=== PATIENT | male | born 1990 | race Caucasian/White ===

== ENCOUNTER 2020-04-12 16:16 | Outpatient (REF) | payer OTHER, SELFPAY ==
[2020-04-12 18:02] LABS: MANUAL DIFF FLAG NO
[2020-04-12 18:08] LABS: Basophils Percent Auto 0.4 % (0-2); Eosinophils Absolute Auto 0.1 X10*3/uL (0.0-0.4); Eosinophils Percent Auto 1.1 % (0-4); Hematocrit 45.7 % (42-52); Hemoglobin 15.8 g/dl (14.0-18.0); Imm Gran Abs Auto 0.03 X10*3/uL (0.00-0.03); Imm Gran Pct Auto 0.3 % (0.0-0.4); Lymphocytes Absolute Auto 3.3 X10*3/uL (1.2-4.9); Lymphocytes Percent Auto 31.8 % (20-40); Mean Corpuscular HGB Conc 34.6 g/dl (31.0-36.0); Mean Corpuscular Hemoglobin 32.1 pg (27.0-33.0); Mean Corpuscular Volume 92.9 fL (80-98); Mean Platelet Volume 11.8 fL (9.4-12.4); Monocytes Absolute Auto 0.8 X10*3/uL (0.1-1.2); Monocytes Percent Auto 7.9 % (2-11); Neutrophils Absolute Auto 6.1 X10*3/uL (2.0-8.3); Neutrophils Percent Auto 58.5 % (45-73); Platelet Count 209 X10*3/uL (160-400); Red Blood Count 4.92 X10*6/uL (4.60-5.80); Red Cell Distribution Width 11.8 % (11.0-16.0); White Blood Count 10.5 X10*3/uL (4.8-10.8)
[2020-04-12 18:16] LABS: Glucose Urine UA NEG (NEG); Leukocyte Esterase Urine NEG (NEG); Nitrite Urine NEG (NEG); Specific Gravity - Urine >= 1.030 (1.005-1.025); Urine Blood NEG (NEG); Urine Ketones NEG (NEG); Urine Protein NEG (NEG-TRACE)
[2020-04-12 18:22] LABS: Appearance Urine CLEAR; Color Urine YELLOW
[2020-04-12 18:27] LABS: Anion Gap 15 (12-20); Blood Urea Nitrogen 15 mg/dL (9-16); Calcium 9.1 mg/dL (8.4-10.2); Carbon Dioxide 25 mmol/L (22-29); Chloride 103 mmol/L (96-108); Estimated Glomerular Filt Rate > 60; Glucose Random 75 mg/dL (60-115); Potassium 3.9 mmol/l (3.3-5.1); Sodium 139 mmol/L (135-145)
[2020-04-12 18:49] LABS: Syphilis Screen Nonreactive (Nonreactive)
[2020-04-13 01:45] LABS: CT PCR NOT DETECTED (Not Detect.); NG PCR NOT DETECTED (Not Detect.)
[2020-04-15 11:13] LABS: HIV Num 1 1.09 S/CO (0.00-0.99)
[2020-04-15 12:03] LABS: HIV Num 2 1.14 S/CO
[2020-04-15 12:04] LABS: HIV Num 3 1.05 S/CO
[2020-04-15 12:06] LABS: HIV AB/AG Reactive (Nonreactive)
[2020-04-16 13:31] LABS: HIV 1 Antibody NEGATIVE (NEGATIVE); HIV 2 Antibody NEGATIVE (NEGATIVE)
[2020-04-19 05:16] LABS: HIV-1 RNA TMA Qualitative Not Detected (Not Detected)
== END 2020-04-12 16:17 | disposition home or self-care (01) ==
LOC: HO.LAB 16:16
PROVIDERS: PCP Internal Medicine; Visit Provider Internal Medicine
DX: Z11.4 Encounter for screening for human immunodeficiency virus [HIV] (principal); Z11.3 Encounter for screening for infections with a predominantly sexual mode of transmission; Z11.8 Encounter for screening for other infectious and parasitic diseases
CPT/HCPCS: 36415; 80048; 81003; 85025; 86701; 86702; 86780; 87389; 87491; 87591

== ENCOUNTER 2020-05-29 07:51 | Outpatient (REF) | payer OTHER, SELFPAY | END 2020-05-29 07:52 | disposition home or self-care (01) | LOC: HO.LAB 07:51 | PROVIDERS: Visit Provider Internal Medicine | DX: Z20.828 Contact with and (suspected) exposure to other viral communicable diseases (principal) | CPT/HCPCS: C9803; U0003 ==

== ENCOUNTER 2020-06-18 07:54 | Outpatient (REF) | payer OTHER, SELFPAY | END 2020-06-18 07:55 | disposition home or self-care (01) | LOC: HO.LAB 07:54 | PROVIDERS: Visit Provider Internal Medicine | DX: Z20.822 Contact with and (suspected) exposure to COVID-19 (principal) | CPT/HCPCS: 36415; C9803; U0003 ==

== ENCOUNTER 2020-06-28 14:31 | Outpatient (REF) | payer OTHER, SELFPAY ==
[2020-06-28 15:23] LABS: MANUAL DIFF FLAG NO
[2020-06-28 15:38] LABS: Basophils Percent Auto 0.3 % (0-2); Eosinophils Absolute Auto 0.1 X10*3/uL (0.0-0.4); Eosinophils Percent Auto 1.5 % (0-4); Hemoglobin 15.8 g/dl (14.0-18.0); Imm Gran Abs Auto 0.04 X10*3/uL (0.00-0.03); Imm Gran Pct Auto 0.5 % (0.0-0.4); Lymphocytes Absolute Auto 2.8 X10*3/uL (1.2-4.9); Lymphocytes Percent Auto 31.9 % (20-40); Mean Corpuscular HGB Conc 33.6 g/dl (31.0-36.0); Mean Corpuscular Hemoglobin 31.4 pg (27.0-33.0); Mean Corpuscular Volume 93.4 fL (80-98); Mean Platelet Volume 11.1 fL (9.4-12.4); Monocytes Absolute Auto 0.6 X10*3/uL (0.1-1.2); Monocytes Percent Auto 6.5 % (2-11); Neutrophils Absolute Auto 5.1 X10*3/uL (2.0-8.3); Neutrophils Percent Auto 59.3 % (45-73); Platelet Count 195 X10*3/uL (160-400); Red Blood Count 5.03 X10*6/uL (4.60-5.80); Red Cell Distribution Width 12.1 % (11.0-16.0); White Blood Count 8.6 X10*3/uL (4.8-10.8)
[2020-06-28 15:39] LABS: Glucose Urine UA NEG (NEG); Leukocyte Esterase Urine NEG (NEG); Nitrite Urine NEG (NEG); PH 6.5 (5.0-8.0); Urine Blood NEG (NEG); Urine Ketones NEG (NEG); Urine Protein NEG (NEG-TRACE)
[2020-06-28 15:44] LABS: Appearance Urine CLEAR; Color Urine YELLOW
[2020-06-28 15:53] LABS: Anion Gap 14 (12-20); Blood Urea Nitrogen 16 mg/dL (9-16); Calcium 9.3 mg/dL (8.4-10.2); Carbon Dioxide 27 mmol/L (22-29); Chloride 104 mmol/L (96-108); Cholesterol 148 mg/dL; Estimated Glomerular Filt Rate > 60; Glucose Random 89 mg/dL (60-115); Potassium 3.9 mmol/L (3.3-5.1); Sodium 141 mmol/L (135-145)
[2020-07-01 08:11] LABS: HIV AB/AG Nonreactive (Nonreactive); HIV Num 1 0.75 S/CO (0.00-0.99)
[2020-07-01 15:42] LABS: C. trachomatis RNA TMA NOT DETECTED (NOT DETECTED); N. gonorrhoeae RNA TMA NOT DETECTED (NOT DETECTED)
== END 2020-06-28 14:32 | disposition home or self-care (01) ==
LOC: HO.LAB 14:31
PROVIDERS: PCP Internal Medicine; Visit Provider Internal Medicine
DX: Z83.3 Family history of diabetes mellitus (principal); Z11.3 Encounter for screening for infections with a predominantly sexual mode of transmission
CPT/HCPCS: 36415; 80048; 81003; 82465; 85025; 87389; 87491; 87591

== ENCOUNTER 2020-07-27 13:32 | Emergency (ER) | payer OTHER, SELFPAY ==
[2020-07-27 13:35] VITALS: BP 138/81; PULSE 87; RESP 18; TEMP 36.8; O2SAT 98; BMI 22.4
--- NOTE | 2020-07-27 15:44 | ED.WOUNDLAC ---
HPI - Wound/Laceration General Chief Complaint: Wound/Laceration Stated Complaint: finger laceration Time Seen by Provider: 07/27/20 15:44 History of Present Illness HPI narrative: Patient complains of left 3rd finger laceration accidentally while cutting something with a knife, no numbness no weakness no tingling, he is not up-to-date on his tetanus shot Related Data Allergies Allergy/AdvReac Type Severity Reaction Status Date / Time No Known Allergies Allergy Verified 07/27/20 13:34 Review of Systems Review of Systems: Positive for left 3rd finger laceration Negative is no dizziness no weakness no numbness no tingling no paresthesias no joint pain PMFSH Past Medical History Source: nursing notes reviewed Medical History (Updated 07/27/20 @ 15:44 by LAKHWINDER Noland) No pertinent past medical history Social History Social History Advance Directives: No Advance Directives Information Provided: No Physical Exam Vital Signs: Vital Signs: Last Vital Signs Temp 98.3 F 07/27/20 13:35 Pulse 87 07/27/20 13:35 Resp 18 07/27/20 13:35 BP 138/81 07/27/20 13:35 Pulse Ox 98 07/27/20 13:35 Body Mass Index 22.4 General appearance no disc cute distress comfortable relaxed and cooperative Head is normocephalic atraumatic Neck is supple Respiratory no distress Extremities the left 3rd finger mid phalanx dorsal aspect has a 1.5 cm superficial laceration, there is no deficit in tendon function on either flexion or extension, there is full range of motion in all joints there is no numbness or weakness distally and neurovascular intact distal Neuro no focal deficits Course Course Course Narrative: 1.5 cm left 3rd finger laceration is cleansed and irrigated with normal saline, no foreign body seen, closed with Steri-Strips and dressing applied Discharge Plan Discharge Clinical Impression: Laceration Patient Disposition: Home, Self-Care Additional Instructions: Removed tape in 5-6 days You got a tetanus injection Return any time for redness swelling discharge from wound any sign of infection or any concerns Interventions: ED Discharge Assessment Last Done: 07/27/20 16:04 Discharge Date/Time: 07/27/20 15:50
== END 2020-07-27 15:50 | disposition home or self-care (01) ==
PROVIDERS: Emergency Provider Emergency Medicine Emergency Medical Services; PCP Internal Medicine
DX: S61.213A Laceration without foreign body of left middle finger without damage to nail, initial encounter (principal); W26.0XXA Contact with knife, initial encounter; Y93.9 Activity, unspecified; Y92.019 Unspecified place in single-family (private) house as the place of occurrence of the external cause; Y99.9 Unspecified external cause status
CPT/HCPCS: 90471; 90715; 99283; 99284

== ENCOUNTER 2021-01-10 15:30 | Outpatient (REF) | payer OTHER, SELFPAY ==
[2021-01-10 16:24] LABS: MANUAL DIFF FLAG NO
[2021-01-10 16:25] LABS: Basophils Percent Auto 0.3 % (0-2); Eosinophils Absolute Auto 0.3 X10*3/uL (0.0-0.4); Eosinophils Percent Auto 2.8 % (0-4); Hematocrit 44.7 % (42-52); Hemoglobin 15.1 g/dl (14.0-18.0); Imm Gran Abs Auto 0.03 X10*3/uL (0.00-0.03); Imm Gran Pct Auto 0.3 % (0.0-0.4); Lymphocytes Absolute Auto 2.9 X10*3/uL (1.2-4.9); Lymphocytes Percent Auto 32.7 % (20-40); Mean Corpuscular HGB Conc 33.8 g/dl (31.0-36.0); Mean Corpuscular Hemoglobin 31.5 pg (27.0-33.0); Mean Corpuscular Volume 93.3 fL (80-98); Monocytes Absolute Auto 0.8 X10*3/uL (0.1-1.2); Monocytes Percent Auto 8.6 % (2-11); Neutrophils Absolute Auto 4.9 X10*3/uL (2.0-8.3); Neutrophils Percent Auto 55.3 % (45-73); Platelet Count 215 X10*3/uL (160-400); Red Blood Count 4.79 X10*6/uL (4.60-5.80); Red Cell Distribution Width 12.2 % (11.0-16.0)
[2021-01-10 16:39] LABS: Estimated Average Glucose 94 mg/dL; Hemoglobin A1c % 4.9 %
[2021-01-10 16:46] LABS: Anion Gap 13 (12-20); Blood Urea Nitrogen 15 mg/dL (9-16); Calcium 9.3 mg/dL (8.4-10.2); Carbon Dioxide 25 mmol/L (22-29); Chloride 106 mmol/L (96-108); Estimated Glomerular Filt Rate > 60; Glucose Random 87 mg/dL (60-115); Sodium 140 mmol/L (135-145)
[2021-01-11 08:38] LABS: Syphilis Screen Nonreactive (Nonreactive)
[2021-01-11 13:11] LABS: CT PCR NOT DETECTED (Not Detect.); NG PCR NOT DETECTED (Not Detect.)
== END 2021-01-10 15:31 | disposition home or self-care (01) ==
LOC: HO.LAB 15:30
PROVIDERS: PCP Internal Medicine; Visit Provider Internal Medicine
DX: L98.9 Disorder of the skin and subcutaneous tissue, unspecified (principal); Z11.3 Encounter for screening for infections with a predominantly sexual mode of transmission; Z11.4 Encounter for screening for human immunodeficiency virus [HIV]; Z11.8 Encounter for screening for other infectious and parasitic diseases
CPT/HCPCS: 80048; 83036; 85025; 86780; 87491; 87591

== ENCOUNTER 2023-03-02 16:26 | Outpatient (REF) | payer OTHER, SELFPAY ==
[2023-03-02 16:37] LABS: MANUAL DIFF FLAG NO
[2023-03-02 17:30] LABS: Basophils Percent Auto 0.4 % (0-2); Eosinophils Absolute Auto 0.2 X10*3/uL (0.0-0.4); Eosinophils Percent Auto 2.2 % (0-4); Hematocrit 44.8 % (42.0-52.0); Hemoglobin 15.3 g/dl (14.0-18.0); Imm Gran Abs Auto 0.07 X10*3/uL (0.00-0.03); Imm Gran Pct Auto 0.7 % (0.0-0.4); Lymphocytes Percent Auto 28.5 % (20-40); Mean Corpuscular HGB Conc 34.2 g/dl (31.0-36.0); Mean Corpuscular Hemoglobin 31.5 pg (27.0-33.0); Mean Corpuscular Volume 92.2 fL (80.0-98.0); Mean Platelet Volume 11.1 fL (9.4-12.4); Monocytes Absolute Auto 0.8 X10*3/uL (0.1-1.2); Monocytes Percent Auto 7.8 % (2-11); Neutrophils Absolute Auto 6.4 x10*3/uL (2.0-8.3); Neutrophils Percent Auto 60.4 % (45-73); Platelet Count 219 X10*3/uL (160-400); Red Blood Count 4.86 X10*6/uL (4.60-5.80); Red Cell Distribution Width 11.9 % (11.0-16.0); White Blood Count 10.6 X10*3/uL (4.8-10.8)
[2023-03-02 17:38] LABS: Estimated Average Glucose 94 mg/dL; Hemoglobin A1c % 4.9 % (<6.0)
[2023-03-02 18:09] LABS: Anion Gap 15 (12-20); Blood Urea Nitrogen 17 mg/dL (9-16); Calcium 9.8 mg/dL (8.4-10.2); Carbon Dioxide 22 mmol/L (22-29); Chloride 106 mmol/L (96-108); Estimated Glomerular Filt Rate > 60; Glucose Random 104 mg/dL (60-115); Potassium 3.6 mmol/L (3.3-5.1); Sodium 139 mmol/L (135-145)
== END 2023-03-02 16:27 | disposition home or self-care (01) ==
LOC: HO.LAB 16:26
PROVIDERS: PCP Internal Medicine; Visit Provider Internal Medicine
DX: R63.5 Abnormal weight gain (principal); Z83.3 Family history of diabetes mellitus
CPT/HCPCS: 36415; 80048; 83036; 85025

== ENCOUNTER 2023-10-27 08:57 | Outpatient (REF) | payer OTHER, SELFPAY | END 2023-10-27 08:58 | disposition home or self-care (01) | LOC: HO.LNP 08:57 | PROVIDERS: PCP Internal Medicine; Referring Provider Internal Medicine; Visit Provider Surgery | DX: L72.11 Pilar cyst (principal) | CPT/HCPCS: 11422; 88304; 99202 ==

== ENCOUNTER 2023-10-27 08:57 | Outpatient (AMB) | payer OTHER, SELFPAY ==
--- NOTE | 2023-10-27 08:59 | MHC.OFFVIS ---
Vital Signs 10/27/23 09:04 Height 5 ft 1 in Weight 149 lb BMI 28.2 BP 130/88 Blood Pressure Location Rt brachial Position Sitting Pulse 57 Intake Visit Reasons: Scalp lesion Intake Note: Patient referred by PCP Dr. Wood for lesion on scalp. Reports present for yrs. Patient c/o: hx of pilar cyst removed from post scalp. Administrative Services Assistant Required: No Accompanied by: Self / Same As Patient Allergies No Known Allergies Allergy (Verified 10/27/23 09:03) Medication List - Last Reconciled 10/27/23 by Maikol Thomas MD No Known Home Meds HPI Comments Details: Patient presents for evaluation of a left frontal scalp when. It is increasing in size, become more symptomatic. He would like to have it excised. Patient had a prior scalp when excised from the posterior scalp a few years ago. Chart was reviewed and patient evaluated [facility] Medical History (System 03/19/23 @ 14:35 by Alivia Ibrahim) No pertinent past medical history Social History (Updated 10/27/23 @ 09:04 by TAYLOR Villalba) Alcohol intake: current Alcohol intake frequency: holidays/special occasions only Patient Tobacco Use Status: Never used Tobacco Physical Exam Vital Signs: Last Vital Signs Pulse 57 10/27/23 09:04 BP 130/88 10/27/23 09:04 BMI result Body Mass Index 28.2 HEENT Other: Proximally 2 x 2 cm left frontal scalp 1. No other gross pathology demonstrated. Left posterior scalp scar from previous when excision in the past. Office Procedures Excision Details: Risks, benefits, alternatives of scalp nica excision were reviewed with the patient and included but not limited to bleeding, infection, recurrence, numbness, pain, scarring the patient wished to proceed. All questions answered. Consent signed. After appropriate positioning, and pre Marking of the nica, patient underwent 1% lidocaine and Betadine prep and uneventfully longitudinal incision was made over this area with enucleation of the pilar cyst. Specimen sent to pathology. Wounds irrigated, secured hemostasis, and closed using interrupted 2-0 Prolene sutures followed by bacitracin. Patient tolerated procedure well 32042-Gfuvotuy scalp/neck/hands/feet/genitalia 1.1cm-2cm Procedure code (CPT) selection complete Office Meds lidocaine 1 %-epinephrine 1:100,000 injection solution Performing Provider: Maikol Thomas MD Performing Location: [facility] [place] [facility] Administered by: Maikol Thomas MD on 10/27/23 09:23 Dose Route Admin Location Dispensed Lot Number Expiration Date [facility] Director Quality Assurance 10 mL Infiltration 10 mL Assessment & Plan Assessment & Plan (1) Pilar cyst of scalp: Code(s): L72.11 - Pilar cyst Category: Surgical Plan: Patient has been given local instructions including showering in 2 days, bacitracin to the wound, Tylenol or Motrin p.r.n. and patient will see me as directed and 1 and half weeks time for suture follow-up or as needed. Orders: Orders AMB Excision Today L72.11 - Pilar cyst Medications: New lidocaine-epinephrine 1 %-1:100,000 10 mL Infiltration ONCE 30 mL 0RF L72.11 - Pilar cyst Coding Level of Care Code New Pt Level 5 (93722) Diagnoses Pilar cyst of scalp L72.11 CPT Codes Scalp/Neck/Hands/Feet/Genetalia - CPT: 86278-Anasxnix scalp/neck/hands/feet/genitalia 1.1cm-2cm ([id number])
[2023-10-27 09:04] VITALS: BP 130/88; PULSE 57; BMI 28.2
== END 2023-10-27 09:27 | disposition home or self-care (01) ==
PROVIDERS: PCP Internal Medicine; Referring Provider Internal Medicine; Visit Provider Surgery
DX: L72.11 Pilar cyst (principal)
CPT/HCPCS: 11422; 99204

== ENCOUNTER 2023-11-08 09:15 | Outpatient (AMB) | payer OTHER, SELFPAY ==
--- NOTE | 2023-11-08 09:19 | MHC.OFFVIS ---
Intake Visit Reasons: s/p suture removal Scalp lesion Intake Note: Patient here s/p exc on Rt parietal scalp. Reports incision healing well. Patient c/o: feels scabby. Denies oozing, pain. Two sutures removed without incident. District Resource Officer Required: No Accompanied by: Self / Same As Patient Allergies No Known Allergies Allergy (Verified 11/08/23 09:20) HPI Comments Details: Patient presents for follow-up. He has no wound issues or complaints. Pathology is benign [facility] Medical History (System 03/19/23 @ 14:35 by Alivia Ibrahim) No pertinent past medical history Surgical History (Updated 11/08/23 @ 09:24 by Maikol Thomas MD) Pilar cyst of scalp (10/27/23) Social History (Updated 10/27/23 @ 09:04 by TAYLOR Villalba) Alcohol intake: current Alcohol intake frequency: holidays/special occasions only Patient Tobacco Use Status: Never used Tobacco Physical Exam HEENT Other: Wound clean dry and intact. Sutures uneventfully removed. Assessment & Plan Assessment & Plan (1) Postop check: Code(s): Z09 - Encounter for follow-up examination after completed treatment for conditions other than malignant neoplasm Category: Surgical Plan Patient has been given local instructions, and will follow-up p.r.n.. All questions answered. Coding Level of Care Code Global (36120) Diagnoses Postop check Z09
== END 2023-11-08 09:31 | disposition home or self-care (01) ==
PROVIDERS: PCP Internal Medicine; Visit Provider Surgery
DX: Z09 Encounter for follow-up examination after completed treatment for conditions other than malignant neoplasm (principal)
CPT/HCPCS: 99024

== ENCOUNTER → 2023-11-08 09:15 | Outpatient (BNVA) | payer OTHER, SELFPAY | PROVIDERS: PCP Internal Medicine; Visit Provider Surgery | DX: Z09 Encounter for follow-up examination after completed treatment for conditions other than malignant neoplasm (principal); Z79.899 Other long term (current) drug therapy | CPT/HCPCS: 99212 ==

== ENCOUNTER 2024-02-09 16:38 | Outpatient (REF) | payer OTHER, SELFPAY ==
[2024-02-09 16:55] LABS: MANUAL DIFF FLAG NO
[2024-02-09 17:06] LABS: Basophils Absolute Auto 0.1 X10*3/uL (0.0-0.2); Basophils Percent Auto 0.5 % (0-2); Eosinophils Absolute Auto 0.2 X10*3/uL (0.0-0.4); Eosinophils Percent Auto 1.7 % (0-4); Hematocrit 43.7 % (42.0-52.0); Hemoglobin 14.8 g/dl (14.0-18.0); Imm Gran Abs Auto 0.04 X10*3/uL (0.00-0.03); Imm Gran Pct Auto 0.4 % (0.0-0.4); Lymphocytes Absolute Auto 3.2 X10*3/uL (1.2-4.9); Lymphocytes Percent Auto 30.7 % (20-40); Mean Corpuscular HGB Conc 33.9 g/dl (31.0-36.0); Mean Corpuscular Hemoglobin 30.7 pg (27.0-33.0); Mean Corpuscular Volume 90.7 fL (80.0-98.0); Mean Platelet Volume 10.6 fL (9.4-12.4); Monocytes Absolute Auto 0.8 X10*3/uL (0.1-1.2); Monocytes Percent Auto 7.7 % (2-11); Neutrophils Absolute Auto 6.1 x10*3/uL (2.0-8.3); Platelet Count 221 X10*3/uL (160-400); Red Blood Count 4.82 X10*6/uL (4.60-5.80); White Blood Count 10.4 X10*3/uL (4.8-10.8)
[2024-02-09 17:18] LABS: Appearance Urine Clear; Color Urine Yellow; Glucose Urine UA Negative (Negative); Leukocyte Esterase Urine Negative (Negative); Nitrite Urine Negative (Negative); Specific Gravity - Urine >= 1.030 (1.005-1.025); Urine Blood Negative (Negative); Urine Ketones Trace mg/dL (Negative); Urine Protein Negative (Neg-Trace)
[2024-02-10 04:34] LABS: Syphilis Screen Nonreactive (Nonreactive)
[2024-02-10 05:11] LABS: HIV AB/AG Nonreactive (Nonreactive); HIV Num 1 0.39 S/CO (0.00-0.99); ~HepC Num1 0.16 S/CO (0.00-0.79); ~Hepatitis C Antibody Nonreactive (Nonreactive)
[2024-02-10 06:10] LABS: CT PCR NOT DETECTED (Not Detect.); NG PCR NOT DETECTED (Not Detect.)
== END 2024-02-09 16:39 | disposition home or self-care (01) ==
LOC: HO.LAB 16:38
PROVIDERS: PCP Internal Medicine; Visit Provider Internal Medicine
DX: Z11.3 Encounter for screening for infections with a predominantly sexual mode of transmission (principal)
CPT/HCPCS: 81003; 85025; 86780; 86803; 87389; 87491; 87591

== ENCOUNTER 2024-02-17 13:14 | Outpatient (REF) | payer OTHER, SELFPAY ==
[2024-02-17 14:01] LABS: Appearance Urine Clear; Color Urine Yellow; Glucose Urine UA Negative (Negative); Leukocyte Esterase Urine Negative (Negative); Nitrite Urine Negative (Negative); Specific Gravity - Urine 1.025 (1.005-1.025); Urine Blood Negative (Negative); Urine Ketones Negative (Negative); Urine Protein Negative (Neg-Trace)
[2024-02-17 15:49] LABS: CT PCR NOT DETECTED (Not Detect.); NG PCR NOT DETECTED (Not Detect.)
== END 2024-02-17 13:15 | disposition home or self-care (01) ==
LOC: HO.LAB 13:14
PROVIDERS: PCP Internal Medicine; Visit Provider Internal Medicine
DX: R30.0 Dysuria (principal)
CPT/HCPCS: 81003; 87086; 87491; 87591

== ENCOUNTER 2024-03-15 14:21 | Outpatient (REF) | payer OTHER, SELFPAY ==
--- NOTE | ~2024-03-15 | MM_ITS ---
EXAMINATION: MM DIAGNOSTIC DIGITAL BREAST TOMOSYNTHESIS, BILATERAL US BREAST LIMITED, RIGHT MAMMOGRAPHY: CLINICAL INFORMATION: 33-year-old male, right retroareolar palpable mass with associated tenderness, history of right gynecomastia. COMPARISON: Mammography: 04/09/2017. TECHNIQUE: Digital breast tomosynthesis is performed in both the craniocaudal and mediolateral oblique views along with computer-aided detection (CAD). Synthesized 2D images are generated from the tomosynthesis. FINDINGS: The breasts are almost entirely fatty (ACR BI-RADS breast composition Category a). (accession [id number]), There are scattered areas of fibroglandular density (ACR BI-RADS breast composition Category b). (accession [id number]) There is extensive retroareolar breast tissue development in the right breast. Findings are consistent with severe gynecomastia. No abnormalities noted left breast. Otherwise, no suspicious calcifications, masses, or areas of architectural distortion in either breast. No skin or axillary abnormalities. ULTRASOUND: CLINICAL INFORMATION: As above. COMPARISON: 04/09/2017 . TECHNIQUE: Targeted sonographic evaluation was performed using a high frequency linear transducer. Right breast was imaged in the retroareolar region, in the region of palpable concern. Left breast was split screen imaged for comparison purposes. Selected archived documentation. FINDINGS: RIGHT BREAST: There is moderate to severe retroareolar breast tissue development. No masses, cystic abnormalities, abnormal shadowing, or architectural abnormalities. Split screening image of the left breast shows no evidence of left sided breast tissue development. MM/MM tomosynthesis diagnostic BI IMPRESSION: There are no findings suspicious for malignancy in either breast. There is moderate to severe right male gynecomastia. Recommend clinical management and follow-up. OVERALL ASSESSMENT: Mammography: BI-RADS 2 - Benign Findings Ultrasound: BI-RADS 2 - Benign Findings RECOMMENDATION: 1. Patient should be managed based on the clinical impression. Electronically signed by: Fermin Rose MD 03/15/2024 05:37 PM EDT
== END 2024-03-15 14:22 | disposition home or self-care (01) ==
LOC: HO.MAMMO 14:21
PROVIDERS: PCP Internal Medicine; Visit Provider Internal Medicine
DX: N64.4 Mastodynia (principal)
CPT/HCPCS: 76642; 77062; 77066

== ENCOUNTER → 2024-03-15 14:30 | Outpatient (BNV) | payer OTHER, SELFPAY | PROVIDERS: PCP Internal Medicine; Visit Provider Radiology Diagnostic Radiology | DX: N62 Hypertrophy of breast (principal) | CPT/HCPCS: 76642; 77062; 77066 ==

== ENCOUNTER 2024-05-18 13:18 | Outpatient (REF) | payer OTHER, SELFPAY ==
[2024-05-18 14:25] LABS: Appearance Urine Cloudy; Color Urine Yellow; Glucose Urine UA Negative (Negative); Leukocyte Esterase Urine Negative (Negative); Nitrite Urine Negative (Negative); PH 5.5 (5.0-9.0); Urine Blood Negative (Negative); Urine Ketones Negative (Negative); Urine Protein Negative (Neg-Trace)
[2024-05-18 17:31] LABS: CT PCR NOT DETECTED (Not Detect.); NG PCR NOT DETECTED (Not Detect.)
[2024-05-19 03:42] LABS: HIV AB/AG Nonreactive (Nonreactive); HIV Num 1 0.38 S/CO (0.00-0.99)
[2024-05-19 03:48] LABS: Syphilis Screen Nonreactive (Nonreactive)
== END 2024-05-18 13:19 | disposition home or self-care (01) ==
LOC: HO.LAB 13:18
PROVIDERS: PCP Internal Medicine; Visit Provider Internal Medicine
DX: Z11.3 Encounter for screening for infections with a predominantly sexual mode of transmission (principal)
CPT/HCPCS: 81003; 86780; 87389; 87491; 87591